=== PATIENT | male | born 1955 | race Caucasian/White ===

== ENCOUNTER → 2021-09-03 | Outpatient (CLI) | payer OTHER ==
[~2021-09-03] MED LIST: ALOGLIPTIN25 MG PO; COLACE100 MG PO; FLONASE 0.05%50 MCG NARES; FUROSEMIDE 20 M20 MG PO; HYDROXYZINE HCL25 M2 PO; LANTUS SUBQ; LIDOCAINE PAIN1 EACH TRANSDERM; LIPITOR80 MG PO; MELOXICAM15 MG PO; MIRALAX119 GM PO; NEURONTIN 300M300 M2 PO; NORVASC10 MG PO; NOVOLOG FL100 UNIT/M SUBQ; OMEPRAZOLE40 MG PO; PIOGLITAZONE30 MG PO; PRAZOSIN HCL1 MG PO; REMERON15 M2 PO; VITAMIN C500 M1 PO; VITAMIN D350 MC3 PO; WELLBUTRIN SR150 MG PO; ZINC50 M1 PO
== END ==
LOC: M.PC 08:39
PROVIDERS: ATTEND Physical Medicine & Rehabilitation
DX: M47.26 Other spondylosis with radiculopathy, lumbar region (principal); M51.16 Intervertebral disc disorders with radiculopathy, lumbar region; M79.604 Pain in right leg; E78.5 Hyperlipidemia, unspecified; I10 Essential (primary) hypertension; G47.33 Obstructive sleep apnea (adult) (pediatric); E11.9 Type 2 diabetes mellitus without complications; E89.0 Postprocedural hypothyroidism; Z90.49 Acquired absence of other specified parts of digestive tract

== ENCOUNTER → 2021-10-01 | Outpatient (CLI) | payer OTHER | END | disposition home or self-care (01) | LOC: M.PC 09:06 | PROVIDERS: ATTEND Physical Medicine & Rehabilitation | DX: M54.59 Other low back pain (principal); M47.816 Spondylosis without myelopathy or radiculopathy, lumbar region; M51.16 Intervertebral disc disorders with radiculopathy, lumbar region; M79.604 Pain in right leg; I10 Essential (primary) hypertension; E11.9 Type 2 diabetes mellitus without complications; E78.5 Hyperlipidemia, unspecified; F32.9 Major depressive disorder, single episode, unspecified; K21.9 Gastro-esophageal reflux disease without esophagitis; G47.33 Obstructive sleep apnea (adult) (pediatric); Z98.890 Other specified postprocedural states; Z79.899 Other long term (current) drug therapy; Z90.49 Acquired absence of other specified parts of digestive tract; Z88.8 Allergy status to other drugs, medicaments and biological substances ==

== ENCOUNTER → 2021-10-15 | Outpatient (CLI) | payer OTHER | END | disposition home or self-care (01) | LOC: M.PC 08:41 | PROVIDERS: ATTEND Physical Medicine & Rehabilitation | DX: M54.59 Other low back pain (principal); M47.816 Spondylosis without myelopathy or radiculopathy, lumbar region; M51.36 Other intervertebral disc degeneration, lumbar region; M54.16 Radiculopathy, lumbar region; M79.604 Pain in right leg; I10 Essential (primary) hypertension; E11.40 Type 2 diabetes mellitus with diabetic neuropathy, unspecified; E78.5 Hyperlipidemia, unspecified; F32.9 Major depressive disorder, single episode, unspecified; G47.30 Sleep apnea, unspecified; K21.9 Gastro-esophageal reflux disease without esophagitis; Z98.890 Other specified postprocedural states; Z79.899 Other long term (current) drug therapy; Z93.0 Tracheostomy status; Z90.49 Acquired absence of other specified parts of digestive tract ==

== ENCOUNTER → 2021-11-06 | Outpatient (CLI) | payer OTHER | LOC: M.LAB 10-30 07:48 | PROVIDERS: ATTEND Physical Medicine & Rehabilitation | DX: Z01.812 Encounter for preprocedural laboratory examination (principal); Z20.822 Contact with and (suspected) exposure to COVID-19 ==